=== PATIENT | female | born 1965 | race Caucasian/White ===

== ENCOUNTER 2017-03-29 08:01 | Emergency (ER) | payer OTHER ==
[~2017-03-29] VITALS: Ht 170.2 cm; Wt 81.6 kg
[~2017-03-29 08:01] MED LIST: ALPRAZOLAM1 MG PO; GEMFIBROZIL600 MG PO; HYDROXYZINE HCL25 MG PO; METFORMIN500 MG PO; ONGLYZA5 MG PO; TOPAMAX 100MG100 MG PO; TOPROL XL50 MG PO; TRAZODONE150 MG PO; ZOLOFT 100 MG100 MG PO
--- NOTE | 2017-03-29 08:10 | ED UPPER/LOWER EXTREMITY COMPL ---
History of Present Illness General Chief Complaint: Lower Extremity Problems Stated Complaint: BIBA RIGHT LEG PAIN Source: patient Exam Limitations: no limitations Vital Signs & Intake/Output Vital Signs & Intake/Output Vital Signs Date Time Temp Pulse Resp B/P B/P Pulse O2 O2 Flow FiO2 Mean Ox Delivery Rate 03/29 0943 98.1 80 20 130/80 98 Room Air 03/29 0805 98.2 80 18 131/84 98 Room Air Allergies Coded Allergies: NO KNOWN ALLERGIES (09/19/12) Reconcile Medications Alprazolam (Unknown Strength) TABLET (Unknown Dose) PO DAILY ANXIETY ( Reported) Gemfibrozil 600 MG TABLET 1 TAB PO DAILY CHOLESTEROL (Reported) HYDROXYZINE HCL (Hydroxyzine HCl) 25 MG TABLET 1 TAB PO TID anxiety Ibuprofen 800 MG TABLET 1 TAB PO TID pain METFORMIN HCL (Metformin) 500 MG TABLET 1 TAB PO BID DIABETES (Reported) Metoprolol Succinate (Toprol XL) (Unknown Strength) TER (Unknown Dose) PO DAILY BP (Reported) SAXAGLIPTIN HCL (Onglyza) 5 MG TABLET 1 TAB PO DAILY DIABETES (Reported) Sertraline (Zoloft 100 MG Tab) (Unknown Strength) TABLET (Unknown Dose) PO DAILY PANIC ATTACKS (Reported) Topiramate (Topamax 100MG) 100 MG TABLET 4 TAB PO DAILY HEADACHE (Reported) TRAZODONE HCL (Trazodone HCl) (Unknown Strength) TABLET (Unknown Dose) PO QPM SLEEP (Reported) Triage Note: PT BIBRene FROM HOME IN [place] FOR RIGHT LEG PAIN. STATES SHE WAS SEEN AT [facility] AND "THEY DID NOTHING FOR ME". PT AMBULATED FROM EMS STRETCHER TO ED STRETCHER W/O DIFFICULTY. KARMEN SALAZAR AT BEDSIDE FOR EVAL. Triage Nurses Notes Reviewed? yes Onset: Abrupt Duration: week(s):, constant, continues in ED Timing: recent history Severity: moderate, severe Pain/Injury Location: Right: Hip, Leg, Knee, Thigh. Method of Injury: unknown No Modifying Factors: none HPI: 51-year-old female comes into emergency room with complaints of right leg pain. Patient reports that over a month ago she had fallen down steps and hurt her left leg. She has been going to physical therapy. Patient reports pain in her right side the past few weeks. She reports that nothing seems to make the symptoms better or worse. Denies any other associated symptoms. Denies any recent falls or trauma. Pain from her hip down to her foot. (ODESSA MORALES) Past History Travel History Traveled to [place] past 21 day No Medical History Any Pertinent Medical History? see below for history Cardiovascular: hypertension, hyperlipidemia Endocrine: diabetes Surgical History Surgical History: non-contributory Psychosocial History Who do you live with Mother What is your primary language Persian Tobacco Use: Current Daily Use Daily Tobacco Use Amount/Type: => 5 Cigarettes daily ETOH Use: denies use Illicit Drug Use: denies illicit drug use Family History Hx Contributory? No (ODESSA MORALES) Review of Systems Review of Systems Constitutional: Reports: no symptoms. EENTM: Reports: no symptoms. Respiratory: Reports: no symptoms. Cardiovascular: Reports: no symptoms. Gastrointestinal/Abdominal: Reports: no symptoms. Genitourinary: Reports: no symptoms. Musculoskeletal: Reports: see HPI. Skin: Reports: no symptoms. Neurological/Psychological: Reports: no symptoms. Hematologic/Endocrine: Reports: no symptoms. Immunological: Reports: no symptoms. All Other Systems: Reviewed and Negative (ODESSA MORALES) Physical Exam Physical Exam General Appearance: well developed/nourished, mild distress Head: atraumatic Eyes: Bilateral: normal appearance. Ears, Nose, Throat: normal ENT inspection, hearing grossly normal Neck: normal inspection Cardiovascular/Respiratory: no respiratory distress Back: normal inspection Hip Right: normal range of motion, normal inspection Knee Right: normal range of motion, normal inspection Foot Right: normal inspection, normal range of motion Neurologic/Tendon: normal sensation, normal motor functions, normal tendon functions, responds to pain, no evidence tendon injury, no pulse deficit Skin: intact, normal color, warm/dry Lymphatic: no anterior cervical mahamed (ODESSA MORALES) Progress Differential Diagnosis: CHF, compartment syndrome, contusion, dislocation, DVT, fracture, gout, septic arthritis, sprain, tendon injury Plan of Care: Orders Procedure Date/time Status [id number], RIGHT 03/29 809 Active XRY-FEMUR, 2 VIEWS RIGHT 03/29 809 Active Current Medications Sig/Bijal Start time Last Medication Dose Stop Time Status Admin Ketorolac 30 MG ONCE ONE 03/29 0900 AC Tromethamine 03/29 09 (Toradol) Diagnostic Imaging: Viewed by Me: Radiology Read. Discussed w/RAD: Radiology Read. Radiology Impression: EXAM TYPE: RAD - XRY-FEMUR, 2 VIEWS RIGHT; XRY-TIBIA- FIBULA, RIGHT EXAMINATION: XR RIGHT TIBIA/FIBULA AND FEMUR CLINICAL INFORMATION: Pain. COMPARISON: None TECHNIQUE: 4 views of the right femur. 2 views of the tibia and fibula. FINDINGS: There is no evidence of fracture. There is no evidence of dislocation at the hip, knee, or ankle joint. There is moderate degenerative change involving the right hip with near complete loss of the joint space superolaterally with mild subchondral sclerosis. Minor patellar spurring is seen within the knee. No knee joint effusion. The visualized soft tissues appear unremarkable. IMPRESSION: No fracture. Moderate degenerative change, right hip. DICTATED BY: CONY ADAM MD DATE/TIME DICTATED:03/29/17856 STROKE COORDINATOR:CHRISTEL DATE/TIME TRANSCRIBED:03/29/17856 (MARTIN PERAZA,ODESSA) Departure Departure Disposition: HOME OR SELF CARE Condition: Stable Clinical Impression Primary Impression: Arthritis Referrals: ADDISON LOPEZ,AMINATA Gibbs (PCP/Family) Additional Instructions: Take Tylenol and Motrin at home for your pain. Follow-up with physical therapy. Return if any concerns worsening symptoms. Please go over all results of today's visit with your primary care doctor. Contact your primary care doctor to let them know you were here in the emergency room. There may be nonspecific findings which may not be related to your visit today here in the emergency room but may require further evaluation and chronic monitoring by your primary care doctor. If you had a laceration today the chance of foreign body always remains. You should follow-up with your primary care doctor for recheck in 3-5 days for a wound check. If you had an x-ray done there is a chance that a fracture could have been missed on initial read and you should follow-up with your primary care doctor for repeat x-rays if symptoms persist. If your blood pressure was elevated here in the emergency room please have rechecked by her primary care doctor within the next 48 hours by your primary care doctor. If you were prescribed a narcotic here in the emergency room or any type of controlled substances you're not allowed to drive while taking this medication or operate any type of heavy machinery. Narcotics can make you feel lightheaded dizziness nausea and can cause constipation. You may need to sweet pickle maker a stool softener. Thank you for choosing [facility] emergency room. Please return to the emergency room immediately if you have any other concerns worsening of symptoms. Departure Forms: Customer Survey General Discharge Information Prescriptions: Current Visit Scripts Ibuprofen 1 TAB PO TID #20 TAB Comments 03/29/2017 10:17:11 AM No evidence of acute fracture. Patient clinically looks well. Nontoxic- appearing. Patient had 60 tramadol filled beginning of this month and was supposed to last her until next month. She denied taking this medication initially until I printed out the list online on [employer]. Patient will not be getting any narcotics. Follow-up with her primary. Follow-up with physical therapy. (ODESSA MORALES) PA/DINKEY LOCOMOTIVE OPERATOR Co-Sign Statement Statement: ED Attending supervision documentation- [] I saw and evaluated the patient. I have also reviewed all the pertinent lab results and diagnostic results. I agree with the findings and the plan of care as documented in the PA's/DINKEY LOCOMOTIVE OPERATOR's documentation. [X] I have reviewed the ED Record and agree with the PA's/DINKEY LOCOMOTIVE OPERATOR's documentation. [] Additions or exceptions (if any) to the PAs/DINKEY LOCOMOTIVE OPERATOR's note and plan are summarized below: [] (RICK CARLOS DO)
--- NOTE | 2017-03-29 09:04 | RADIOLOGY REPORT ---
EXAMINATION: XR RIGHT TIBIA/FIBULA AND FEMUR CLINICAL INFORMATION: Pain. COMPARISON: None TECHNIQUE: 4 views of the right femur. 2 views of the tibia and fibula. FINDINGS: There is no evidence of fracture. There is no evidence of dislocation at the hip, knee, or ankle joint. There is moderate degenerative change involving the right hip with near complete loss of the joint space superolaterally with mild subchondral sclerosis. Minor patellar spurring is seen within the knee. No knee joint effusion. The visualized soft tissues appear unremarkable. IMPRESSION: No fracture. Moderate degenerative change, right hip.
[2017-03-29] MEDS ORDERED: IBUPROFEN800 M1 PO (09:33)
[2017-03-29 09:43] VITALS: BP 130/80
== END 2017-03-29 09:56 ==
LOC: ERH 08:01
DX: M19.90 Unspecified osteoarthritis, unspecified site (principal)
CPT/HCPCS: 73552; 73590-RT; 96372; J1885